=== PATIENT | male | born 1965 | race African-American/Black ===

== ENCOUNTER → 2017-06-10 | Outpatient (CLI) | payer BC ==
--- NOTE | 2017-06-10 15:47 | RADIOLOGY REPORT (SQ) ---
EXAM DESCRIPTION: MRI CERVICAL SPINE WITHOUT COMPLETED DATE/TIME: 06/10/2017 3:02 pm REASON FOR STUDY: PAIN ([id number]) M43.6 TORTICOLLIS R52 PAIN, UNSPECIFIED COMPARISON: None. TECHNIQUE: Sagittal and Axial imaging includes T1, T2, STIR and gradient echo sequences. LIMITATIONS: Motion artifact FINDINGS: ALIGNMENT: Reversal of cervical curvature likely due to muscle spasm. . Very mild stefania listhesis of C7 over T1 related to bilateral facet arthropathy VERTEBRAE: Intact. BONE MARROW: Fatty degenerative endplate changes are present and C5-6 DISCS: Diffuse decreased T2 weighted intervertebral disc signal. Anterior disc space loss of height at C3-4 and C5-6 HARDWARE: None in the spine. CORD AND BASE OF BRAIN: Normal in size and signal intensity. SOFT TISSUES: No soft tissue masses. C1-C2: No significant spinal stenosis. C2-C3: No central canal or foraminal stenosis C3-C4: No central stenosis. Mild bilateral foraminal narrowing from facet and uncovertebral hypertro phy. C4-C5: No central stenosis. Moderate bilateral foraminal narrowing from facet and uncovertebral hype rtrophy. C5-C6: No central stenosis. Mild posterior disc bulging. Moderate bilateral foraminal narrowing fro m facet and uncovertebral hypertrophy. C6-C7: No central stenosis. Mild bilateral foraminal narrowing from facet and uncovertebral hypertro phy. C7-T1: No central or foraminal stenosis. Bilateral facet arthropathy. UPPER THORACIC: Incompletely imaged. No significant spinal stenosis or exit foraminal stenosis. OTHER: No other significant finding. IMPRESSION: No high-grade central canal narrowing or significant disc protrusion/herniation. TECHNICAL DOCUMENTATION: JOB ID: [id number] [employer]- All Rights Reserved
== END ==
LOC: RAD 14:03
PROVIDERS: ATTEND Physician Assistant
DX: M54.2 Cervicalgia (principal); M43.6 Torticollis
CPT/HCPCS: 72141